=== PATIENT | female | born 1990 | race Caucasian/White ===

== ENCOUNTER 2021-06-05 17:05 | Inpatient (IN) | payer MEDICAID, SELFPAY ==
[2021-06-05] VITALS (8 sets, daily range): BP systolic 93–131; BP diastolic 61–84; PULSE 48–67; RESP 14–18; TEMP 36.3; O2SAT 98–100; BMI 21.6
--- NOTE | 2021-06-05 18:01 | CTR_ITS ---
PROCEDURE INFORMATION: Exam: CT Abdomen And Pelvis Without Contrast Exam date and time: 06/05/2021 6:01 PM Age: 31 years old Clinical indication: Abdominal pain; Prior surgery; Surgery type: Csection; Patient HX: Epigastric pain with n/v. ; Additional info: Epigastric pain, vomiting TECHNIQUE: Imaging protocol: Computed tomography of the abdomen and pelvis without contrast. Radiation optimization: All CT scans at this facility use at least one of these dose optimization techniques: automated exposure control; mA and/or kV adjustment per patient size (includes targeted exams where dose is matched to clinical indication); or iterative reconstruction. COMPARISON: No relevant prior studies available. RADIATION DOSE METRICS: Total DLP (mGy-cm): 682.35 FINDINGS: Liver: Hepatic steatosis. Gallbladder and bile ducts: Normal. No calcified stones. No ductal dilation. Pancreas: Normal. No ductal dilation. Spleen: Normal. No splenomegaly. Adrenal glands: Normal. No mass. Kidneys and ureters: Normal. No hydronephrosis. Stomach and bowel: Unremarkable. No obstruction. No mucosal thickening. Appendix: No evidence of appendicitis. Intraperitoneal space: Small amount nonspecific fluid in the pelvis Vasculature: Unremarkable. No abdominal aortic aneurysm. Lymph nodes: Unremarkable. No enlarged lymph nodes. Urinary bladder: Unremarkable as visualized. Reproductive: IUD in the uterine cavity. Bones/joints: Unremarkable. No acute fracture. Soft tissues: Unremarkable. CT/CT abdomen pelvis con [id number] IMPRESSION: 1. Negative for acute inflammatory process in the abdomen or pelvis. 2. Hepatic steatosis. 3. IUD in the uterine cavity. 4. Small amount nonspecific fluid in the pelvis Radiation Dose CTDIVOL = (mGy): DLP = 682.35 (mGy-cm)
[2021-06-05] MEDS: sodium chloride 0.9% 1,000 ML 999 ML IV (18:09)
[2021-06-05] MEDS: ondansetron 2 mg/ML SDV 2 mL 4 MG IVP (18:10)
[2021-06-05] MEDS: morphine 4 mg/mL SDV 1 mL IVP ×2 (18:10→23:57)
[2021-06-05 18:13] LABS: Basophils # 0.1 10^3/uL (0.0-0.1); Basophils % 0.4 %; Eosinophils % 0.1 %; Hematocrit 43.3 % (37.0-47.0); Hemoglobin 14.8 g/dL (11.5-15.3); Lymphocytes # 1.6 10^3/uL (0.8-4.8); Lymphocytes % 6.5 %; Mean Corpuscular HGB Conc 34.2 g/dL (30.0-36.0); Mean Corpuscular Hemoglobin 30.6 pg (28.0-34.0); Mean Corpuscular Volume 89.6 fl (81-99); Mean Platelet Volume 11.5 fL (7.4-10.4); Monocytes # 1.5 10^3/uL (0.2-0.9); Monocytes % 6.2 %; Neutrophils # 20.73 10^3/uL (1.8-7.7); Neutrophils % 86.2 %; Nucleated Red Blood Cells % 0 %; Platelet Count 287 10^3/cmm (130-400); Red Blood Count 4.83 10^6/uL (4.1-5.3); Red Cell Distribution Width 14.8 % (12.1-15.1); White Blood Count 24.1 10^3/uL (4.0-10.0)
[2021-06-05 18:22] LABS: HCG, Serum Qual Negative (Negative)
[2021-06-05 18:31] LABS: Lactate (Lactic Acid level) 1.7 mmol/L (0.5-2.2)
[2021-06-05 18:32] LABS: Alanine Aminotransferase 405 U/L (0-33); Albumin Level 4.3 g/dL (3.5-5.2); Alkaline Phosphatase 80 IU/L (35-105); Anion Gap 19.1 (5-19); Aspartate Amino Transferase 366 U/L (0-32); Blood Urea Nitrogen 16 mg/dL (6-20); C Reactive Protein 226.1 mg/L (0.0-4.9); Calcium 9.2 mg/dL (8.5-10.5); Carbon Dioxide 25 mmol/L (22-29); Chloride 100 mmol/L (98-107); Creatine Phosphokinase 24 U/L (26-192); Glomerular Filtration Rate 84.8 mL/min (90-130); Glucose 109 mg/dL (65-115); Lipase 9 U/L (13-60); Osmolality Calculated 294 mOsm/kg (285-295); Potassium 3.1 mmol/L (3.5-5.1); Sodium 141 mmol/L (136-145); Total Bilirubin 2.2 mg/dL (0.15-1.2); Total Protein 7.3 g/dL (6.6-8.7)
[2021-06-05 18:39] LABS: Procalcitonin 84.74 ng/mL (0-0.5)
--- NOTE | 2021-06-05 19:01 | USR_ITS ---
PROCEDURE INFORMATION: Exam: US Abdomen, Limited; Right Upper Quadrant Exam date and time: 06/05/2021 7:01 PM Age: 31 years old Clinical indication: Abdominal pain; Acute; Additional info: Ruq pain TECHNIQUE: Imaging protocol: US abdomen. Real time ultrasound with image documentation. Limited exam focused on the right upper quadrant. COMPARISON: CT abdomen pelvis wo con [id number] 06/05/2021 6:31 PM FINDINGS: The pancreas is unremarkable. The liver is homogeneous in echotexture. There is no liver mass. There is no intrahepatic biliary dilatation. There is slight prominence of the portal triads which can be seen with hepatitis. Please correlate with liver function tests. The common bile duct measured between 4 and 5 mm. No gallstones are seen within the gallbladder. There is no thickening of the gallbladder wall. There is no pericholecystic fluid. The patient was not tender over the gallbladder. The right kidney is unremarkable. No free fluid is identified. US/US gall bladder [id number] IMPRESSION: 1. Slight prominence of the portal triads which can be seen with hepatitis. Please correlate with liver function tests. 2. No biliary dilatation.
[2021-06-05 19:52] LABS: Acetaminophen 43.9 ug/mL (10-30)
[2021-06-05 20:05] LABS: Blood Urine 2+ (Negative); Glucose Urine UA Norm (Normal); Ketones Urine 2+ (Negative); Nitrate Urine Positive (Negative); Protein Urine Trace (Negative); Urine Appearance SL Hazy (CLEAR); Urine Color Yellow (Yellow); pH Urine 5 (5-7)
[2021-06-05 20:06] LABS: Add Urine Microscopic? YES; Bilirubin Urine 1+ (Negative); Leukocyte Esterase Urine Negative (Negative); Urobilinogen Urine 4 mg/dL (Negative)
[2021-06-05 20:10] LABS: Add Urine Culture? No; Bacteria Urine 2+ /hpf; Squamous Epithelial Cell Urine 25-40 /hpf (0-5); WBC Urine 15-25 /hpf (0-5)
[2021-06-05 21:06] LABS: Hepatitis A Antibody IgM Non-Reactive (Nonreactive); Hepatitis B Core IgM Non-Reactive (Nonreactive); Hepatitis B Surface Antigen Non-Reactive (Nonreactive); Hepatitis C Virus Antibody Non-Reactive (Nonreactive)
--- NOTE | 2021-06-05 21:57 | MRR_ITS ---
PROCEDURE INFORMATION: Exam: MR Abdomen Without Contrast Exam date and time: 06/05/2021 9:57 PM Age: 31 years old Clinical indication: Nausea and vomiting; Additional info: Hyperbilirubinemia, transaminitis, ruq pain TECHNIQUE: Imaging protocol: MR of the abdomen without contrast. COMPARISON: CT abdomen pelvis con [id number] 06/05/2021 6:31 PM FINDINGS: The study is compared with the recent CT and ultrasound. The liver is homogeneous in signal. There is no liver mass. Is there is no intrahepatic biliary dilatation. The common bile duct measures between 4 and 5 mm. It tapers smoothly. No filling defects are identified. No gallstones are seen within the gallbladder. The pancreas is normal in signal. There is no pancreatic mass. The spleen is unremarkable. There is no adrenal mass. The left kidney appears heterogeneous. There is some stranding of the surrounding fat. Findings could represent pyelonephritis. Please correlate with urinalysis. The right kidney appears normal. The aorta and IVC are normal in caliber. There is no retroperitoneal or mesenteric adenopathy. The stomach and visualized bowel loops are grossly unremarkable. MR/MR MRCP [id number] IMPRESSION: 1. No liver mass. No biliary dilatation. 2. The common bile duct measures between 4 and 5 mm. There are no ductal stones. 3. The left kidney is slightly heterogeneous and there is some perinephric fat stranding. Please correlate clinically for possible pyelonephritis.
--- NOTE | 2021-06-05 23:11 | ED_ITS ---
HPI - Nausea/Vomiting/Diarrhea General: Chief complaint: ER Hold Stated complaint: N/V, ABD PAIN Time Seen by Provider: 06/05/21 17:28 Source: patient, family (significant other), RN notes reviewed and old records reviewed Mode of arrival: ambulatory Limitations: no limitations History of Present Illness: HPI Narrative: This pleasant 31 year female who presents to the ED with complaints of abdominal pain. The pain is located in the epigastric/ RUQ area. Pain started suddenly early this morning and woke her up from sleep. She has been taking a lot of ibuprofen and tylenol for back pain. The back pain is in the left CVA region. She also endorses dysuria and thinks she had a kidney infection for which she has been taking loads of cranberry tablets. She has a history of UTI's in the past. Her pain is severe, and is associated nausea and vomiting. She did not initially want to come to the ED to be evaluated but her significant other insisted that she come in as she is unable to stop vomiting. MD elicited complaint: nausea, vomiting, abdominal pain and flank pain Onset (ago): hour(s) Description of vomiting: food contents Associated nausea: Yes Associated abdominal pain: Yes Location of pain: Epigastric, RUQ and L flank Pain consistency: constant Severity: severe Quality: stabbing Exacerbating factors: none Relieving factors: none Associated symtoms: Reports nausea; Denies altered mental status, anxiety, bloating, change in vision, chest pain, cough, diaphoresis, decreased urine output, dizziness, dysuria, epistaxis, fatigue, fecal incontinence, fevers/chills, headache(s), anorexia, malaise, myalgias, numbness, palpitations, rash, short of breath, syncope, tenesmus, tinnitus or weakness Review of Systems General: Reports: 10 or more systems reviewed and unremarkable except in HPI and below Const: Denies: fatigue, malaise or diaphoresis Eyes: Denies: change in vision ENMT: Denies: tinnitus or epistaxis Card: Denies: chest pain, palpitations or syncope GI: Reports: nausea; Denies: bloating or fecal incontinence : Denies: dysuria Neuro: Denies: headache(s) or dizziness Psych: Denies: anxiety PFSH ED PFSH: Medical History IUD (intrauterine device) in place Physical Exam Const: COMMON NORMALS: average body habitus, patient oriented x3, no limitations, healthy appearing, alert and well nourished EXAM LIMITATIONS: no altered mental status GENERAL APPEARANCE: in distress HENMT: COMMON NORMALS: normocephalic, atraumatic and moist oral mucous membranes HEAD & SCALP: normocephalic and atraumatic Neck/C-Spine: COMMON NORMALS: no meningeal signs and no JVD Resp: COMMON NORMALS: normal respiratory effort, No retractions, No use of accessory muscles, clear to auscultation bilaterally and percussion normal AUSCULTATION: clear to auscultation bilaterally PERCUSSION: percussion normal Cardio: COMMON NORMALS: no JVD, regular rate, regular rhythm, S1 normal heart sound present, S2 normal heart sound present, No gallops present (Cardio), No clicks present (Cardio), No murmurs present (Cardio), No rub (Cardio) and Peripheral pulses 2+ throughout RATE: regular rate RHYTHM: regular rhythm HEART SOUNDS: S1 normal heart sound present and S2 normal heart sound present PERIPHERAL PULSES: Peripheral pulses 2+ throughout GI: COMMON NORMALS: Normal to inspection, nondistended, normoactive bowel sounds present, Soft to palpation, No hepatosplenomegaly present, no masses and no bruits PALPATION: Yes Soft to palpation, Yes Tenderness to palpation present (GI) (epigastric) Details: RUQ, Yes Guarding due to palpation present (GI) and Yes No hepatosplenomegaly present : BLADDER/KIDNEY EXAM: Yes CVA tenderness Back/Pelvis: GENERAL BACK: Yes CVA tenderness CVA tenderness: left Extremity: COMMON NORMALS: normal to inspection, full ROM, capillary refill normal, no calf tenderness and no pedal edema Neuro: COMMON NORMALS: patient oriented x3 SENSORIUM/ORIENTATION: Yes alert MENINGEAL SIGNS: Yes no meningeal signs Skin: COMMON NORMALS: no rashes or lesions noted, no wounds, turgor normal, no jaundice, no petechiae and no mottling GENERAL SKIN EXAM: no rashes or lesions noted and turgor normal Course Consultations: Consultation #1: Discussed the patient with Dr. Loja and she kindly accepted the patient to her service. Time: 22:22 Vital Signs: Vital signs: Vital Signs Temperature 98.3 F 06/09/21 17:20 Pulse Rate 60 06/09/21 17:20 Respiratory Rate 16 06/09/21 17:20 Blood Pressure 120/76 06/09/21 17:20 Pulse Oximetry 95 06/09/21 17:20 MDM - Nausea/Vomiting/Diarrhea MDM Narrative: Medical decision making narrative: This pleasant 31 year old female presents to the ED with complaints of urinary symptoms, flank pain, upper abdominal pain with nausea and vomiting. In the ED she was in obvious distress, and her pain was only controlled with multiple doses of narcotic analgesics. Her UA is suggestive of a UTI, but of most concern, she appears to have hepatitis, with significantly elevated levels of her liver enzymes. US of her GB and CT of her abdomen and pelvis were essentially unremarkable. Acute hepatitis panel was negative. Because i had no explanation for her symptoms, an MRCP was done which was negative for gall bladder disease but showed possible pyelonephritis. After further history taking she admitted to taking significant amounts of tylenol for her flank pain. Tylenol levels were elevated and she is in acetaminophen toxicity. She was started on NAC and admitted for further evaluation and management. Medical Records: Attestation: I reviewed the patient's medical records. Lab Data: Attestation: I reviewed the patient's lab results. Labs: Lab Results 06/05/21 06/05/21 06/05/21 Range/Units 17:47 17:47 17:47 WBC 24.1 H (4.0-10.0) 10^3/ uL RBC 4.83 (4.1-5.3) 10^6/u L Hgb 14.8 (11.5-15.3) g/dL Hct 43.3 (37.0-47.0) % MCV 89.6 (81-99) fl MCH 30.6 (28.0-34.0) pg MCHC 34.2 (30.0-36.0) g/dL RDW 14.8 (12.1-15.1) % Plt Count 287 (130-400) 10^3/c mm MPV 11.5 H (7.4-10.4) fL Neut % (Auto) 86.2 % Lymph % (Auto) 6.5 % [place] % (Auto) 6.2 % Eos % (Auto) 0.1 % Baso % (Auto) 0.4 % Neut # (Auto) 20.73 H (1.8-7.7) 10^3/u L Lymph # (Auto) 1.6 (0.8-4.8) 10^3/u L [place] # (Auto) 1.5 H (0.2-0.9) 10^3/u L Eos # (Auto) 0.0 (0.0-0.8) 10^3/u L Baso # (Auto) 0.1 (0.0-0.1) 10^3/u L Nucleated RBC % (a uto) 0 % Nucleated RBCs # 0.0 /100WBC Sodium 141 (136-145) mmol/L Potassium 3.1 L (3.5-5.1) mmol/L Chloride 100 (98-107) mmol/L Carbon Dioxide 25 (22-29) mmol/L Anion Gap 19.1 H (5-19) BUN 16 (6-20) mg/dL Creatinine 0.8 (0.5-0.9) mg/dL GFR Calculation 84.8 L (90-130) mL/min Glucose 109 (65-115) mg/dL Calculated Osmolal ity 294 (285-295) mOsm/k g Lactate 1.7 (0.5-2.2) mmol/L Calcium 9.2 (8.5-10.5) mg/dL Total Bilirubin 2.2 H (0.15-1.2) mg/dL AST 366 H (0-32) U/L ALT 405 H (0-33) U/L Alkaline Phosphata se 80 (35-105) IU/L Creatine Kinase 24 L (26-192) U/L C-Reactive Protein 226.1 H (0.0-4.9) mg/L Total Protein 7.3 (6.6-8.7) g/dL Albumin 4.3 (3.5-5.2) g/dL Globulin 3.0 (1.3-4.6) g/dL Lipase 9 L (13-60) U/L Procalcitonin 84.74 H (0-0.5) ng/mL HCG, Qual (Negative) Urine Color (Yellow) Urine Appearance (CLEAR) Urine pH (5-7) Ur Specific Gravit y (1.005-1.030) Urine Protein (Negative) Urine Glucose (UA) (Normal) Urine Ketones (Negative) Urine Blood (Negative) Urine Nitrate (Negative) Urine Bilirubin (Negative) Urine Urobilinogen (Negative) mg/dL Ur Leukocyte Ameena ase (Negative) Urine RBC (0-2) /hpf Urine WBC (0-5) /hpf Ur Squamous Epith Cells (0-5) /hpf Amorphous Sediment Urine Bacteria (NONE) /hpf Salicylates (3-10) mg/dL Urine Opiates Scre en (Negative) ng/mL Acetaminophen (10-30) ug/mL Ur Barbiturates Sc reen (Negative) ng/mL Ur Phencyclidine S crn (Negative) ng/mL Ur Amphetamines Sc reen (Negative) ng/mL U Benzodiazepines Scrn (Negative) ng/mL Urine Cocaine Scre en (Negative) ng/mL U Marijuana (THC) Screen (Negative) ng/mL Nasal/Oral COVID-1 9 PCR Hepatitis A IgM Ab (Nonreactive) Hep Bs Antigen (Nonreactive) Hep B Core IgM Ab (Nonreactive) Hepatitis C Antibo dy (Nonreactive) 06/05/21 06/05/21 06/05/21 Range/Units 17:47 17:47 17:47 WBC (4.0-10.0) 10^3/ uL RBC (4.1-5.3) 10^6/u L Hgb (11.5-15.3) g/dL Hct (37.0-47.0) % MCV (81-99) fl MCH (28.0-34.0) pg MCHC (30.0-36.0) g/dL RDW (12.1-15.1) % Plt Count (130-400) 10^3/c mm MPV (7.4-10.4) fL Neut % (Auto) % Lymph % (Auto) % [place] % (Auto) % Eos % (Auto) % Baso % (Auto) % Neut # (Auto) (1.8-7.7) 10^3/u L Lymph # (Auto) (0.8-4.8) 10^3/u L [place] # (Auto) (0.2-0.9) 10^3/u L Eos # (Auto) (0.0-0.8) 10^3/u L Baso # (Auto) (0.0-0.1) 10^3/u L Nucleated RBC % (a uto) % Nucleated RBCs # /100WBC Sodium (136-145) mmol/L Potassium (3.5-5.1) mmol/L Chloride (98-107) mmol/L Carbon Dioxide (22-29) mmol/L Anion Gap (5-19) BUN (6-20) mg/dL Creatinine (0.5-0.9) mg/dL GFR Calculation (90-130) mL/min Glucose (65-115) mg/dL Calculated Osmolal ity (285-295) mOsm/k g Lactate (0.5-2.2) mmol/L Calcium (8.5-10.5) mg/dL Total Bilirubin (0.15-1.2) mg/dL AST (0-32) U/L ALT (0-33) U/L Alkaline Phosphata se (35-105) IU/L Creatine Kinase (26-192) U/L C-Reactive Protein (0.0-4.9) mg/L Total Protein (6.6-8.7) g/dL Albumin (3.5-5.2) g/dL Globulin (1.3-4.6) g/dL Lipase (13-60) U/L Procalcitonin (0-0.5) ng/mL HCG, Qual Negative (Negative) Urine Color (Yellow) Urine Appearance (CLEAR) Urine pH (5-7) Ur Specific Gravit y (1.005-1.030) Urine Protein (Negative) Urine Glucose (UA) (Normal) Urine Ketones (Negative) Urine Blood (Negative) Urine Nitrate (Negative) Urine Bilirubin (Negative) Urine Urobilinogen (Negative) mg/dL Ur Leukocyte Ameena ase (Negative) Urine RBC (0-2) /hpf Urine WBC (0-5) /hpf Ur Squamous Epith Cells (0-5) /hpf Amorphous Sediment Urine Bacteria (NONE) /hpf Salicylates (3-10) mg/dL Urine Opiates Scre en (Negative) ng/mL Acetaminophen 43.9 H (10-30) ug/mL Ur Barbiturates Sc reen (Negative) ng/mL Ur Phencyclidine S crn (Negative) ng/mL Ur Amphetamines Sc reen (Negative) ng/mL U Benzodiazepines Scrn (Negative) ng/mL Urine Cocaine Scre en (Negative) ng/mL U Marijuana (THC) Screen (Negative) ng/mL Nasal/Oral COVID-1 9 PCR Hepatitis A IgM Ab Non-reactive (Nonreactive) Hep Bs Antigen Non-reactive (Nonreactive) Hep B Core IgM Ab Non-reactive (Nonreactive) Hepatitis C Antibo dy Non-reactive (Nonreactive) 06/05/21 06/05/21 06/05/21 Range/Units 17:47 19:37 19:37 WBC (4.0-10.0) 10^3/ uL RBC (4.1-5.3) 10^6/u L Hgb (11.5-15.3) g/dL Hct (37.0-47.0) % MCV (81-99) fl MCH (28.0-34.0) pg MCHC (30.0-36.0) g/dL RDW (12.1-15.1) % Plt Count (130-400) 10^3/c mm MPV (7.4-10.4) fL Neut % (Auto) % Lymph % (Auto) % [place] % (Auto) % Eos % (Auto) % Baso % (Auto) % Neut # (Auto) (1.8-7.7) 10^3/u L Lymph # (Auto) (0.8-4.8) 10^3/u L [place] # (Auto) (0.2-0.9) 10^3/u L Eos # (Auto) (0.0-0.8) 10^3/u L Baso # (Auto) (0.0-0.1) 10^3/u L Nucleated RBC % (a uto) % Nucleated RBCs # /100WBC Sodium (136-145) mmol/L Potassium (3.5-5.1) mmol/L Chloride (98-107) mmol/L Carbon Dioxide (22-29) mmol/L Anion Gap (5-19) BUN (6-20) mg/dL Creatinine (0.5-0.9) mg/dL GFR Calculation (90-130) mL/min Glucose (65-115) mg/dL Calculated Osmolal ity (285-295) mOsm/k g Lactate (0.5-2.2) mmol/L Calcium (8.5-10.5) mg/dL Total Bilirubin (0.15-1.2) mg/dL AST (0-32) U/L ALT (0-33) U/L Alkaline Phosphata se (35-105) IU/L Creatine Kinase (26-192) U/L C-Reactive Protein (0.0-4.9) mg/L Total Protein (6.6-8.7) g/dL Albumin (3.5-5.2) g/dL Globulin (1.3-4.6) g/dL Lipase (13-60) U/L Procalcitonin (0-0.5) ng/mL HCG, Qual (Negative) Urine Color Yellow (Yellow) Urine Appearance Sl hazy (CLEAR) Urine pH 5 (5-7) Ur Specific Gravit y 1.020 (1.005-1.030) Urine Protein Trace (Negative) Urine Glucose (UA) Norm (Normal) Urine Ketones 2+ H (Negative) Urine Blood 2+ H (Negative) Urine Nitrate Positive H (Negative) Urine Bilirubin 1+ H (Negative) Urine Urobilinogen 4 H (Negative) mg/dL Ur Leukocyte Ameena ase Negative (Negative) Urine RBC 5-10 H (0-2) /hpf Urine WBC 15-25 H (0-5) /hpf Ur Squamous Epith Cells 25-40 H (0-5) /hpf Amorphous Sediment Not Reportable Urine Bacteria 2+ H (NONE) /hpf Salicylates < 0.3 L (3-10) mg/dL Urine Opiates Scre en Positive H (Negative) ng/mL Acetaminophen (10-30) ug/mL Ur Barbiturates Sc reen Negative (Negative) ng/mL Ur Phencyclidine S crn Negative (Negative) ng/mL Ur Amphetamines Sc reen Positive H (Negative) ng/mL U Benzodiazepines Scrn Negative (Negative) ng/mL Urine Cocaine Scre en Negative (Negative) ng/mL U Marijuana (THC) Screen Positive H (Negative) ng/mL Nasal/Oral COVID-1 9 PCR Hepatitis A IgM Ab (Nonreactive) Hep Bs Antigen (Nonreactive) Hep B Core IgM Ab (Nonreactive) Hepatitis C Antibo dy (Nonreactive) 06/06/ Range/Units 01:30 WBC (4.0-10.0) 10^3/ uL RBC (4.1-5.3) 10^6/u L Hgb (11.5-15.3) g/dL Hct (37.0-47.0) % MCV (81-99) fl MCH (28.0-34.0) pg MCHC (30.0-36.0) g/dL RDW (12.1-15.1) % Plt Count (130-400) 10^3/c mm MPV (7.4-10.4) fL Neut % (Auto) % Lymph % (Auto) % [place] % (Auto) % Eos % (Auto) % Baso % (Auto) % Neut # (Auto) (1.8-7.7) 10^3/u L Lymph # (Auto) (0.8-4.8) 10^3/u L [place] # (Auto) (0.2-0.9) 10^3/u L Eos # (Auto) (0.0-0.8) 10^3/u L Baso # (Auto) (0.0-0.1) 10^3/u L Nucleated RBC % (a uto) % Nucleated RBCs # /100WBC Sodium (136-145) mmol/L Potassium (3.5-5.1) mmol/L Chloride (98-107) mmol/L Carbon Dioxide (22-29) mmol/L Anion Gap (5-19) BUN (6-20) mg/dL Creatinine (0.5-0.9) mg/dL GFR Calculation (90-130) mL/min Glucose (65-115) mg/dL Calculated Osmolal ity (285-295) mOsm/k g Lactate (0.5-2.2) mmol/L Calcium (8.5-10.5) mg/dL Total Bilirubin (0.15-1.2) mg/dL AST (0-32) U/L ALT (0-33) U/L Alkaline Phosphata se (35-105) IU/L Creatine Kinase (26-192) U/L C-Reactive Protein (0.0-4.9) mg/L Total Protein (6.6-8.7) g/dL Albumin (3.5-5.2) g/dL Globulin (1.3-4.6) g/dL Lipase (13-60) U/L Procalcitonin (0-0.5) ng/mL HCG, Qual (Negative) Urine Color (Yellow) Urine Appearance (CLEAR) Urine pH (5-7) Ur Specific Gravit y (1.005-1.030) Urine Protein (Negative) Urine Glucose (UA) (Normal) Urine Ketones (Negative) Urine Blood (Negative) Urine Nitrate (Negative) Urine Bilirubin (Negative) Urine Urobilinogen (Negative) mg/dL Ur Leukocyte Ameena ase (Negative) Urine RBC (0-2) /hpf Urine WBC (0-5) /hpf Ur Squamous Epith Cells (0-5) /hpf Amorphous Sediment Urine Bacteria (NONE) /hpf Salicylates (3-10) mg/dL Urine Opiates Scre en (Negative) ng/mL Acetaminophen (10-30) ug/mL Ur Barbiturates Sc reen (Negative) ng/mL Ur Phencyclidine S crn (Negative) ng/mL Ur Amphetamines Sc reen (Negative) ng/mL U Benzodiazepines Scrn (Negative) ng/mL Urine Cocaine Scre en (Negative) ng/mL U Marijuana (THC) Screen (Negative) ng/mL Nasal/Oral COVID-1 9 PCR Not detected Hepatitis A IgM Ab (Nonreactive) Hep Bs Antigen (Nonreactive) Hep B Core IgM Ab (Nonreactive) Hepatitis C Antibo dy (Nonreactive) Imaging Data^: MRI: Attestation: I personally reviewed and interpreted this imaging study as follows: Radiologist's impression: [address] [id number] Resonance ReportSigned Patient: Jessica Johnson #: [id number]: 1990Acct#:[id number]/Sex: M Date: 06/05/21Loc: ERRoom/Bed:Attending Dr: Ordering Provider/Ordering MD: Judy Fay MD, [facility] [place] Date of Service: 06/05/21 Procedure(s): MR MRCP 22635 Accession Number(s): [id number] Report Number: [id number] PROCEDURE INFORMATION: Exam: MR Abdomen Without Contrast Exam date and time: 06/05/2021 9:57 PM Age: 31 years old Clinical indication: Nausea and vomiting; Additional info: Hyperbilirubinemia, transaminitis, ruq pain TECHNIQUE: Imaging protocol: MR of the abdomen without contrast. COMPARISON: CT abdomen pelvis wo con [id number] 06/05/2021 6:31 PM FINDINGS: The study is compared with the recent CT and ultrasound. The liver is homogeneous in signal. There is no liver mass. Is there is no intrahepatic biliary dilatation. The common bile duct measures between 4 and 5 mm. It tapers smoothly. No filling defects are identified. No gallstones are seen within the gallbladder. The pancreas is normal in signal. There is no pancreatic mass. The spleen is unremarkable. There is no adrenal mass. The left kidney appears heterogeneous. There is some stranding of the surrounding fat. Findings could represent pyelonephritis. Please correlate with urinalysis. The right kidney appears normal. The aorta and IVC are normal in caliber. There is no retroperitoneal or mesenteric adenopathy. The stomach and visualized bowel loops are grossly unremarkable. MR/MR MRCP [id number] IMPRESSION: 1. No liver mass. No biliary dilatation. 2. The common bile duct measures between 4 and 5 mm. There are no ductal stones. 3. The left kidney is slightly heterogeneous and there is some perinephric fat stranding. Please correlate clinically for possible pyelonephritis. Dictated By:Ming Wolff MDSigned By:Ming Wolff MDSigned Date/Time:06/05/212317DD/ 16 US: Attestation: I personally reviewed and interpreted this imaging study as follows: Radiologist's impression: [address] [id number] ReportSigned Patient: Jessica Johsnon #: [id number]: 1990Acct#:[id number]/Sex: 31 / FADM Date: 06/05/21Loc: ERRoom/Bed:Attending Dr: Ordering Provider/Ordering MD: Judy Fay MD, [facility] [place] Date of Service: 06/05/21 Procedure(s): US gall bladder [id number] Accession Number(s): [id number] Report Number: [id number] PROCEDURE INFORMATION: Exam: US Abdomen, Limited; Right Upper Quadrant Exam date and time: 06/05/2021 7:01 PM Age: 31 years old Clinical indication: Abdominal pain; Acute; Additional info: Ruq pain TECHNIQUE: Imaging protocol: US abdomen. Real time ultrasound with image documentation. Limited exam focused on the right upper quadrant. COMPARISON: CT abdomen pelvis wo con [id number] 06/05/2021 6:31 PM FINDINGS: The pancreas is unremarkable. The liver is homogeneous in echotexture. There is no liver mass. There is no intrahepatic biliary dilatation. There is slight prominence of the portal triads which can be seen with hepatitis. Please correlate with liver function tests. The common bile duct measured between 4 and 5 mm. No gallstones are seen within the gallbladder. There is no thickening of the gallbladder wall. There is no pericholecystic fluid. The patient was not tender over the gallbladder. The right kidney is unremarkable. No free fluid is identified. US/US gall bladder [id number] IMPRESSION: 1. Slight prominence of the portal triads which can be seen with hepatitis. Please correlate with liver function tests. 2. No biliary dilatation. Dictated By:Ming Wolff MDSigned By:Ming Wolff MDSigned Date/Time:06/05/21D/ 52 CT Abd/Pel: Attestation: I personally reviewed and interpreted this imaging study as follows: Radiologist's impression: Justin [address] [id number] Scan ReportSigned Patient: Jessica Johnson #: [id number]: 1990Acct#:[id number]/Sex: 31 / FADM Date: 06/05/21Loc: ERRoom/Bed:Attending Dr: Ordering Provider/Ordering MD: Judy Fay MD, [facility] [place] Date of Service: 06/05/21 Procedure(s): CT abdomen pelvis wo con [id number] Accession Number(s): [id number] Report Number: [id number] PROCEDURE INFORMATION: Exam: CT Abdomen And Pelvis Without Contrast Exam date and time: 06/05/2021 6:01 PM Age: 31 years old Clinical indication: Abdominal pain; Prior surgery; Surgery type: Csection; Patient HX: Epigastric pain with n/v. ; Additional info: Epigastric pain, vomiting TECHNIQUE: Imaging protocol: Computed tomography of the abdomen and pelvis without contrast. Radiation optimization: All CT scans at this facility use at least one of these dose optimization techniques: automated exposure control; mA and/or kV adjustment per patient size (includes targeted exams where dose is matched to clinical indication); or iterative reconstruction. COMPARISON: No relevant prior studies available. RADIATION DOSE METRICS: Total DLP (mGy-cm): 682.35 FINDINGS: Liver: Hepatic steatosis. Gallbladder and bile ducts: Normal. No calcified stones. No ductal dilation. Pancreas: Normal. No ductal dilation. Spleen: Normal. No splenomegaly. Adrenal glands: Normal. No mass. Kidneys and ureters: Normal. No hydronephrosis. Stomach and bowel: Unremarkable. No obstruction. No mucosal thickening. Appendix: No evidence of appendicitis. Intraperitoneal space: Small amount nonspecific fluid in the pelvis Vasculature: Unremarkable. No abdominal aortic aneurysm. Lymph nodes: Unremarkable. No enlarged lymph nodes. Urinary bladder: Unremarkable as visualized. Reproductive: IUD in the uterine cavity. Bones/joints: Unremarkable. No acute fracture. Soft tissues: Unremarkable. CT/CT abdomen pelvis wo con [id number] IMPRESSION: 1. Negative for acute inflammatory process in the abdomen or pelvis. 2. Hepatic steatosis. 3. IUD in the uterine cavity. 4. Small amount nonspecific fluid in the pelvis Radiation Dose CTDIVOL = (mGy): DLP = 682.35 (mGy-cm) Dictated By:Joel Mae MDSigned By:Joel Mae MDSigned Date/Time:06/05/21 1843DD/ 41 Critical Care Time Critical Care Time: Critical Care Time: Yes Total Critical Care Time: 60 Attestation: This case had a high probability of a clinically significant, sudden, or life threatening deterioration of this patient's condition which required my full and direct attention, intervention and personal management. Discharge Plan Discharge Patient Disposition: Admitted As Inpatient Admit Provider: Jess Loja Clinical Impression: Acetaminophen toxicity, Pyelonephritis, Hypokalemia, Acute hepatitis Condition: Stable Discharge Diet: Advance as tolerated Discharge Activity: Resume usual activity Coding Level of Care Code ED Health Information Director for g Fwd
[2021-06-05] MEDS: cefTRIAXone 1,000 MG in sodium chloride 0.9% (plus) 50 ML 100 MG IV (23:58)
[2021-06-06] VITALS (11 sets, daily range): BP systolic 95–126; BP diastolic 51–76; PULSE 77–98; RESP 16–18; TEMP 36.8; O2SAT 95–100
--- NOTE | 2021-06-06 00:19 | XRR_ITS ---
PROCEDURE INFORMATION: Exam: XR Chest Exam date and time: 06/06/2021 12:19 AM Age: 31 years old Clinical indication: Other: Sepsis TECHNIQUE: Imaging protocol: XR of the chest. Views: 1 view. COMPARISON: MR MRCP [id number] 06/05/2021 10:36 PM FINDINGS: Lungs: Unremarkable. No consolidation. Pleural spaces: Unremarkable. No pleural effusion. No pneumothorax. Heart/Mediastinum: Unremarkable. No cardiomegaly. Bones/joints: Unremarkable. XR/XR chest 1V portable [id number] IMPRESSION: No acute disease.
--- NOTE | 2021-06-06 00:29 | P.HP_ITS ---
Providers/Chief Complaint Admitting Physician: Jess Loja MD Chief Complaint: N/V, ABD PAIN History of Present Illness Jessica Johnson is a 31 year old female without known significant past medical history who is presenting to the hospital today with chief complaints of pain in the epigastric and right upper quadrant area that started suddenly this morning. Patient states she woke up with pain and had multiple episodes of vomiting wh ich is what prompted her ER visit. Over the past week she has had symptoms of dysuria left-sided CVA tenderness, she presumed she had kidney infection and was taking cranberry tablets at home for cure. She does have a history of recurrent UTIs which have been treated with antibiotics in the past, however she has not used any antibiotics currently. She denies having had any fevers at home however endorses chills and diaphoresis. She has been taking Tylenol and Motrin consistently over the past week. States she takes Tylenol up to 1.5 g 5- 6 times a day to control her abdominal and back pain. In the ER today she is noted to have transaminitis and a Tylenol level greater than 40 consistent with acetaminophen toxicity. Other labs notable for positive UA. Urine drug screen is positive for amphetamines and marijuana. She underwent an MRCP earlier today which ruled out any issues with the gallbladder or portal system, however made incidental note of left-sided perinephric stranding. Dedicated CT of the abdomen was negative for any hydronephrosis or obstructing lesions. Review of Systems General: Reports: 10 or more systems reviewed and unremarkable except in HPI and below Const: Denies: fever(s), chills or body aches Eyes: Denies: change in vision, blurry vision or photophobia ENMT: Reports: hoarseness; Denies: throat pain, enlarged tonsils, odynophagia or nasal congestion Card: Denies: chest pain, palpitations, irregular heart rhythm, edema, swelling of feet/ankles, lightheadedness, pre-syncope, dyspnea on exertion or or thopnea Resp: Denies: dyspnea, productive cough, non-productive cough, wheezing, stridor, pain on inspiration, change in phlegm color, hemoptysis or chest congestion GI: Denies: abdominal pain, nausea, vomiting, hematemesis, coffee ground emesis, dysphagia, heartburn, diarrhea, constipation, GI cramping, change in stool character, hematochezia or melena : Denies: flank pain, difficulty voiding, dysuria, urinary frequency, urinary urgency, urinary hesitancy or hematuria Musc: Denies: neck pain, back pain, extremity pain, joint swelling, joint warmth or deformity Neuro: Denies: headache(s), numbness in extremities, weakness in extremities, sensory changes, difficulty walking, frequent falls, dizziness, vertigo, beha vioral changes, Slurred speech present or seizure-like activity Psych: Denies: anxiety, depression, suicidal ideation or homicidal ideation Endo: Denies: polyuria, polydipsia, tired all the time, cold intolerance or hot flashes Moises/Lymph: Denies: easy bruising or easy bleeding Medications/Allergies Home Medications Medication Instructions Recorded Confirmed Last Taken Type No Known Home Medications 06/05/21 06/05/21 Unknown History Allergies Allergy/AdvReac Type Severity Reaction Status Date / Time No Known Allergies Allergy Unverified 06/05/21 18:38 Vitals/I&O/Wt Last Vital Signs Temp 97.4 F L 06/05/21 17:26 Pulse 64 06/05/21 23:37 Resp 14 06/05/21 23:57 BP 96/69 06/05/21 23:37 Pulse Ox 100 06/05/21 23:37 06/05/21 06/05/21 06/06/21 14:59 22:59 06:59 Intake Total 1000 / 1000 50 / 1050 Balance 1000 / 1000 50 / 1050 Weight last 48 hrs Weight 58.967 kg Physical Exam Narrative: EXAM NARRATIVE: General: No acute distress, AO x3 HEENT: PERRLA, pupils bilaterally equal and reactive, pallors not present Chest: Normal vesicular breath sounds, no added sounds, equal good air entry bilaterally CVS: S1-S2 regular, no murmurs, no tachycardia, no gallops, no rubs Abdomen: Soft, nontender, no organomegaly, bowel sounds present Neuro: No focal deficits, no facial deformity, AO x3, power 5/5 in all limbs Extremities: Left-sided CVA tenderness positive Data : 06/05/21 17:47 06/05/21 17:47 A&P Assessment and plan (1) Pyelonephritis: Uncomplicated pyelonephritis with symptoms ongoing for about a week. Start ceftriaxone 1 g IV every [address] of the abdomen without any hydronephrosis or obstructing lesions. Urine culture pending. Status: Acute (2) Acetaminophen toxicity: Patient taking doses in excess of 7.5 to 8 g of acetaminophen a day for pain relief. Evidence of transaminitis additionally noted. Acetaminophen level greater than 40 Start N-acetylcysteine infusion per protocol and closely monitor LFTs and serial acetaminophen levels. Status: Acute Qualifiers: Encounter type: initial encounter Injury intent: accidental or unintentional Qualified Code(s): T39.1X1A - Poisoning by 4-Aminophenol abhay ivatives, accidental (unintentional), initial encounter (3) Transaminitis: Likely as a result of liver injury from acetaminophen overdose Urine tox screen also positive for amphetamines which may be contributing. Acute hepatitis serology is negative. Check Covid PCR and HIV screen Status: Acute Additional A&P Information DVT prophylaxis Lovenox Full code Attestations Medical Necessity Statement*: Greater than 2 midnight admission is anticipated for above defined care. 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
[2021-06-06 00:46] LABS: Amphetamines Screen Urine Positive (Negative); Barbiturates Screen Urine Negative (Negative); Benzodiazepines Screen Urine Negative (Negative); Cocaine Screen Urine Negative (Negative); Opiate Screen Urine Positive (Negative); PCP Screen Urine Negative (Negative); THC Screen Urine Positive (Negative)
[2021-06-06 00:52] LABS: Salicylate < 0.3 mg/dL (3-10)
[2021-06-06] MEDS: lactated ringers 1,000 ML 75 ML IV ×2 (01:58→20:47)
[2021-06-06] MEDS: morphine 4 mg/mL SDV 1 mL 2 MG IVP ×5 (01:58→20:58)
[2021-06-06] MEDS: ondansetron 2 mg/ML SDV 2 mL 4 MG IVP (04:55)
[2021-06-06 05:17] LABS: Ammonia 40 umol/L (11-51)
[2021-06-06 05:22] LABS: Acetaminophen 8.2 ug/mL (10-30); Alanine Aminotransferase 613 U/L (0-33); Albumin Level 3.1 g/dL (3.5-5.2); Alkaline Phosphatase 63 IU/L (35-105); Anion Gap 13.4 (5-19); Aspartate Amino Transferase 425 U/L (0-32); Blood Urea Nitrogen 10 mg/dL (6-20); Calcium 7.7 mg/dL (8.5-10.5); Carbon Dioxide 24 mmol/L (22-29); Chloride 100 mmol/L (98-107); Globulin 2.7 g/dL (1.3-4.6); Glomerular Filtration Rate 188.7 mL/min (90-130); Glucose 141 mg/dL (65-115); Osmolality Calculated 281 mOsm/kg (285-295); Sodium 135 mmol/L (136-145); Total Bilirubin 1.3 mg/dL (0.15-1.2); Total Protein 5.8 g/dL (6.6-8.7)
[2021-06-06 05:59] LABS: HIV 1 & 2 Antibody Non-Reactive (Non-Reactiv); HIV 1 & 2 Antigen Non-Reactive (Non-Reactiv)
[2021-06-06 06:00] LABS: INR 1.67 (0.8-1.2)
[2021-06-06 06:06] LABS: Potassium 2.4 mmol/L (3.5-5.1)
[2021-06-06] MEDS: lidocaine 1% 5 ML in potassium chloride premix 100 ML 25 ML IV (08:26)
[2021-06-06] MEDS: potassium chloride ER 20 mEq Tablet 40 MEQ PO (08:26)
[2021-06-06] MEDS: pantoprazole DR 40 mg Tablet PO (08:26)
[2021-06-06 10:09] LABS: Magnesium 1.5 mg/dL (1.7-2.3)
--- NOTE | 2021-06-06 13:34 | P.PN_ITS ---
Subjective Subjective: Interval history: 31-year-old female she had reported that she took up to 1-1/2 g 5-6 times a day of Tylenol. Elevated Tylenol level as well as transaminitis. Admitted this morning with complaints of epigastric and right upper quadrant pain. Started on NAC. Tylenol levels have improved although her liver enzymes continue to be elevated. Her nausea vomiting is slightly better. Reports appetite is poor. Other labs notable for positive UA. Urine drug screen is positive for amphetamines and marijuana. She underwent an MRCP earlier today which ruled out any issues with the gallbladder or portal system, however made incidental note of left-sided perinephric stranding. Dedicated CT of the abdomen was negative for any hydronephrosis or obstructing lesions. Medications: Reviewed: Yes Vitals/I&O/Wt Last Vital Signs Temp 97.4 F L 06/05/21 17:26 Pulse 97 06/06/21 08:36 Resp 18 06/06/21 09:34 BP 119/76 06/06/21 08:36 Pulse Ox 98 06/06/21 09:34 06/05/21 06/06/21 06/06/21 22:59 06:59 14:59 Intake Total 1000 / 1000 858.5 / 1858.5 Balance 1000 / 1000 858.5 / 1858.5 Weight last 48 hrs Weight 130 lb Physical Exam Const: COMMON NORMALS: patient oriented x3 GENERAL APPEARANCE: cooperative and lethargic ORIENTATION/CONSCIOUSNESS: Yes lethargic Resp: COMMON NORMALS: normal respiratory effort and No retractions Cardio: COMMON NORMALS: regular rate and regular rhythm RATE: regular rate RHYTHM: regular rhythm GI: COMMON NORMALS: Soft to palpation and non-tender PALPATION: Yes Soft to palpation Neuro: COMMON NORMALS: patient oriented x3 SENSORIUM/ORIENTATION: Yes lethargic Psych: COMMON NORMALS: mental status grossly normal Skin: COMMON NORMALS: no rashes or lesions noted GENERAL SKIN EXAM: no rashes or lesions noted Data : 06/05/21 17:47 06/06/21 04:34 Micro: Microbiology 06/06/21 04:30 Blood Culture - Preliminary Blood SPECIMEN COLLECTED 06/06/21 04:34 Blood Culture - Preliminary Blood SPECIMEN COLLECTED A&P Assessment and plan (1) Pyelonephritis: ceftriaxone 1 g IV every [address] of the abdomen without any hydronephrosis or obstructing lesions. Urine culture pending. Status: Acute (2) Acetaminophen toxicity: patient taking doses in excess of 7.5 to 8 g of acetaminophen a day for pain relief. Evidence of transaminitis additionally noted. Acetaminophen level greater than 40 continue N-acetylcysteine infusion per protocol and closely monitor LFTs and serial acetaminophen level Status: Acute Qualifiers: Encounter type: initial encounter Injury intent: accidental or unintentional Qualified Code(s): T39.1X1A - Poisoning by 4-Aminophenol derivatives, accidental (unintentional), initial encounter (3) Transaminitis: Status: Acute (4) Hypokalemia: replace and recheck Status: Acute (5) Hypomagnesemia: replace and recheck Status: Acute Additional A&P Information DVT: Danny Randle Medical Necessity Statement*: Jessica Johnson's hospital stay will require greater than 2 midnights for transaminitis Coding Level of Care Code Acute 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
[2021-06-06 14:58] LABS: Coronavirus Test Green County Not Detected
[2021-06-06 19:22] LABS: Anion Gap 11.9 (5-19); Blood Urea Nitrogen 6 mg/dL (6-20); Calcium 7.7 mg/dL (8.5-10.5); Carbon Dioxide 26 mmol/L (22-29); Chloride 100 mmol/L (98-107); Glomerular Filtration Rate 188.7 mL/min (90-130); Glucose 109 mg/dL (65-115); Magnesium 1.5 mg/dL (1.7-2.3); Osmolality Calculated 278 mOsm/kg (285-295); Sodium 135 mmol/L (136-145)
[2021-06-06 19:29] LABS: Potassium 2.9 mmol/L (3.5-5.1)
[2021-06-06 20:38] LABS: INR 1.77 (0.8-1.2)
[2021-06-06] MEDS: magnesium sulfate premix 2 GM/50 ML PIGGYBACK IV (20:47)
[2021-06-06 20:48] LABS: Alkaline Phosphatase 65 IU/L (35-105); Aspartate Amino Transferase 478 U/L (0-32); Globulin 2.5 g/dL (1.3-4.6); Phosphorus 1.3 mg/dL (2.5-4.5); Total Bilirubin 1.2 mg/dL (0.15-1.2); Total Protein 5.5 g/dL (6.6-8.7)
[2021-06-06 21:00] LABS: Alanine Aminotransferase 862 U/L (0-33)
[2021-06-07] VITALS (9 sets, daily range): BP systolic 98–121; BP diastolic 62–81; PULSE 75–89; RESP 14–18; TEMP 36.8–36.9; O2SAT 96–99
[2021-06-07] MEDS: cefTRIAXone 1,000 MG in sodium chloride 0.9% (plus) 50 ML 100 MG IV ×2 (01:09→23:35)
[2021-06-07] MEDS: morphine 4 mg/mL SDV 1 mL 2 MG IVP ×3 (04:07→19:55)
[2021-06-07] MEDS: ondansetron 2 mg/ML SDV 2 mL 4 MG IVP (04:07)
[2021-06-07 04:31] LABS: Basophils # 0.1 10^3/uL (0.0-0.1); Basophils % 0.3 %; Eosinophils # 0.2 10^3/uL (0.0-0.8); Eosinophils % 1.4 %; Hematocrit 31.9 % (37.0-47.0); Lymphocytes # 2.2 10^3/uL (0.8-4.8); Lymphocytes % 14.8 %; Mean Corpuscular HGB Conc 34.5 g/dL (30.0-36.0); Mean Corpuscular Hemoglobin 31.2 pg (28.0-34.0); Mean Corpuscular Volume 90.4 fl (81-99); Mean Platelet Volume 12.5 fL (7.4-10.4); Monocytes # 1.3 10^3/uL (0.2-0.9); Monocytes % 8.4 %; Neutrophils # 11.14 10^3/uL (1.8-7.7); Neutrophils % 74.5 %; Nucleated Red Blood Cells % 0 %; Platelet Count 180 10^3/cmm (130-400); Red Blood Count 3.53 10^6/uL (4.1-5.3); Red Cell Distribution Width 14.8 % (12.1-15.1)
[2021-06-07 04:40] LABS: Ammonia 93 umol/L (11-51)
[2021-06-07 04:41] LABS: Albumin Level 2.7 g/dL (3.5-5.2); Alkaline Phosphatase 64 IU/L (35-105); Anion Gap 13.3 (5-19); Aspartate Amino Transferase 547 U/L (0-32); Blood Urea Nitrogen 3 mg/dL (6-20); Calcium 7.8 mg/dL (8.5-10.5); Carbon Dioxide 25 mmol/L (22-29); Chloride 102 mmol/L (98-107); Globulin 2.7 g/dL (1.3-4.6); Glomerular Filtration Rate 188.7 mL/min (90-130); Glucose 86 mg/dL (65-115); Magnesium 1.9 mg/dL (1.7-2.3); Osmolality Calculated 280 mOsm/kg (285-295); Phosphorus 2.8 mg/dL (2.5-4.5); Potassium 3.3 mmol/L (3.5-5.1); Sodium 137 mmol/L (136-145); Total Bilirubin 1.1 mg/dL (0.15-1.2); Total Protein 5.4 g/dL (6.6-8.7)
[2021-06-07 04:46] LABS: Procalcitonin 60.39 ng/mL (0-0.5)
[2021-06-07 04:47] LABS: Acetaminophen < 5.0 ug/mL (10-30)
[2021-06-07 04:54] LABS: Alanine Aminotransferase 1061 U/L (0-33)
[2021-06-07] MEDS: lactulose oral liq 20 gm/30 mL UDC PO ×2 (08:00→17:09)
[2021-06-07] MEDS: pantoprazole DR 40 mg Tablet PO (08:03)
[2021-06-07] MEDS: phosphorus 250 mg Tablet PO ×2 (08:03→17:09)
[2021-06-07] MEDS: magnesium oxide 400 mg tablet PO ×2 (08:30→17:09)
--- NOTE | 2021-06-07 14:48 | P.PN_ITS ---
Subjective Subjective: Interval history: 31-year-old female she had reported that she took up to 1-1/2 g 5-6 times a day of Tylenol. Elevated Tylenol level as well as transaminitis. Admitted this morning with complaints of epigastric and right upper quadrant pain. Started on NAC. Tylenol levels have improved although her liver enzymes continue to be elevated. Her nausea vomiting is slightly better. Reports appetite is poor. Other labs notable for positive UA. Urine drug screen is positive for amphetamines and marijuana. She underwent an MRCP earlier today which ruled out any issues with the gallbladder or portal system, however made incidental note of left-sided perinephric stranding. Dedicated CT of the abdomen was negative for any hydronephrosis or obstructing lesions. Received NAC. Tylenol levels better. Appetite okay. She is wanting to go home. She does have some fatigue. Medications: Reviewed: Yes Vitals/I&O/Wt Last Vital Signs Temp 98.2 F 06/07/21 14:40 Pulse 87 06/07/21 14:40 Resp 18 06/07/21 14:40 BP 109/73 06/07/21 14:40 Pulse Ox 98 06/07/21 14:40 06/06/21 06/07/21 06/07/21 22:59 06:59 14:59 Intake Total 1000 / 1000 1344.5 / 2344.5 Balance 1000 / 1000 1344.5 / 2344.5 Weight last 48 hrs Weight 130 lb Physical Exam Const: COMMON NORMALS: no acute distress Resp: COMMON NORMALS: normal respiratory effort and No retractions Cardio: COMMON NORMALS: regular rate and regular rhythm RATE: regular rate RHYTHM: regular rhythm GI: COMMON NORMALS: Normal to inspection, nondistended, normoactive bowel sounds present and Soft to palpation PALPATION: Yes Soft to palpation : COMMON NORMALS: Yes no CVA tenderness and Yes normal external appearance BLADDER/KIDNEY EXAM: Yes no CVA tenderness Back/Pelvis: COMMON NORMALS: no CVA tenderness Psych: COMMON NORMALS: mental status grossly normal Data : 06/07/21 03:55 06/07/21 03:55 Micro: Microbiology 06/05/21 19:37 Urine Culture - Preliminary Urine,Clean Catch 06/06/21 04:30 Blood Culture - Preliminary Blood NEGATIVE TO DATE 06/06/21 04:34 Blood Culture - Preliminary Blood NEGATIVE TO DATE A&P Assessment and plan (1) Transaminitis: Status: Acute (2) Acetaminophen toxicity: Status: Acute Qualifiers: Encounter type: initial encounter Injury intent: accidental or unintentional Qualified Code(s): T39.1X1A - Poisoning by 4-Aminophenol derivatives, accidental (unintentional), initial encounter (3) Hypokalemia: Status: Acute (4) Hypomagnesemia: Status: Acute (5) Polysubstance abuse: Status: Acute Additional A&P Information #UTI -CT negative for hydronephrosis --cx's negative --continue ceftriaxone # Acetaminophen toxicity #transaminitis --s/p NAC protocol --Acetaminophen level greater than 40 continue N-acetylcysteine infusion per protocol and closely monitor LFTs and serial acetaminophen level #polysubstance use --abnormal UDS, monitor Attestations Medical Necessity Statement*: Jessica Johnson's hospital stay will require greater than 2 midnights for uti, tylenol toxicity Coding Level of Care Code 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
[2021-06-07] MEDS: lactated ringers 1,000 ML 75 ML IV (15:43)
[2021-06-08] VITALS (12 sets, daily range): BP systolic 101–115; BP diastolic 67–77; PULSE 64–80; RESP 16–20; TEMP 36.7–37.4; O2SAT 95–97
[2021-06-08] MEDS: morphine 4 mg/mL SDV 1 mL 2 MG IVP ×5 (00:36→21:46)
[2021-06-08] MEDS: lactulose oral liq 20 gm/30 mL UDC PO (05:15)
[2021-06-08] MEDS: lactated ringers 1,000 ML 75 ML IV (05:17)
--- NOTE | 2021-06-08 05:28 | PC.NURSE ---
Patient AAOx4, OOBT restroom without complications. VSS, patient had a quarter size blood tinged mucous in one of her urine outputs early in AM. C/o of pain in back between shoulder blades relieved with current pain regimen. Room clutter free and call light in reach, turning self frequently. No safety events during shift, no needs at this time. Will report and handoff patient to oncoming nurse at shift change.
[2021-06-08] MEDS: phosphorus 250 mg Tablet PO ×2 (09:16→17:55)
[2021-06-08] MEDS: magnesium oxide 400 mg tablet PO (09:16)
[2021-06-08] MEDS: pantoprazole DR 40 mg Tablet PO (09:16)
[2021-06-08 10:25] LABS: Basophils % 0.3 %; Eosinophils # 0.3 10^3/uL (0.0-0.8); Eosinophils % 2.8 %; Hematocrit 30.7 % (37.0-47.0); Hemoglobin 10.2 g/dL (11.5-15.3); Lymphocytes # 2.2 10^3/uL (0.8-4.8); Lymphocytes % 21.5 %; Mean Corpuscular HGB Conc 33.2 g/dL (30.0-36.0); Mean Corpuscular Hemoglobin 30.5 pg (28.0-34.0); Mean Corpuscular Volume 91.9 fl (81-99); Mean Platelet Volume 11.5 fL (7.4-10.4); Monocytes # 0.9 10^3/uL (0.2-0.9); Monocytes % 8.5 %; Neutrophils # 6.74 10^3/uL (1.8-7.7); Neutrophils % 66.2 %; Nucleated Red Blood Cells % 0 %; Platelet Count 163 10^3/cmm (130-400); Red Blood Count 3.34 10^6/uL (4.1-5.3); Red Cell Distribution Width 14.6 % (12.1-15.1); White Blood Count 10.2 10^3/uL (4.0-10.0)
--- NOTE | 2021-06-08 10:32 | CT_ITS ---
WS: [id number] CT ABDOMEN AND PELVIS NONCONTRAST HISTORY: Persistent hematuria and flank pain TECHNIQUE: Imaging performed through the abdomen and pelvis. Coronal and sagittal reformats are submi tted. All CT scans at [facility] use at least one of these dose optimization techniques: automated exposure control; mA and/or kV adjustment per patient size (includes targeted exams where d ose is matched to clinical indication); or iterative reconstruction. DLP: 643.05 mGy.cm COMPARISON: 06/05/2021 Lower thorax: Dependent changes at the lung bases. Heart size is normal. Liver: Liver is markedly enlarged with decreased attenuation. Very similar to the prior study. Gallbladder: Gallbladder is markedly elongated. There is mixed density within central lumen of the ga llbladder. Pancreas: There is edema around the head of the pancreas. Otherwise negative. Spleen: Spleen is enlarged at 14.5 cm in length. Adrenal glands: Normal. No mass. Right kidney: Normal size kidney with no mass or hydronephrosis. Left kidney: Mild perinephric stranding around the LEFT kidney is similar to the prior study. No obst ruction or calcifications. Aorta: Normal abdominal aorta, no aneurysm or atherosclerosis. Small amount of free fluid in the pelvis. Mild central mesenteric lymph nodes. No adenopathy. GI tract: Normal appendix. No GI tract obstruction. Abdominal wall: Fat-containing umbilical hernia. Pelvis: IUD centrally positioned within the uterus. There is a small amount of free fluid in the cul- de-sac which is more than physiologic and extends into the RIGHT adnexa. Osseous structures: Unremarkable. CT/CT kidney stone [id number] IMPRESSION: 1. Enlarged heterogeneous liver with periportal edema. Consider hepatitis as a possible etiology. 2. Elongated hydropic gallbladder with possible wall thickening. No stones wer e identified on prior studies. Gallbladder was negative on 06/05/2021. Changes i n the gallbladder may be related to acute hepatitis or hepatic injury. 3. Normal appendix. 4. Mild LEFT perinephric stranding without obstruction. Similar to the prior s tudy. 5. Mild splenomegaly. 6. Small amount of free fluid in the cul-de-sac.
[2021-06-08 10:48] LABS: Albumin Level 2.9 g/dL (3.5-5.2); Alkaline Phosphatase 63 IU/L (35-105); Anion Gap 13.5 (5-19); Aspartate Amino Transferase 451 U/L (0-32); Blood Urea Nitrogen 5 mg/dL (6-20); Calcium 8.3 mg/dL (8.5-10.5); Carbon Dioxide 27 mmol/L (22-29); Chloride 101 mmol/L (98-107); Globulin 2.4 g/dL (1.3-4.6); Glomerular Filtration Rate 188.7 mL/min (90-130); Glucose 85 mg/dL (65-115); Osmolality Calculated 283 mOsm/kg (285-295); Potassium 3.5 mmol/L (3.5-5.1); Sodium 138 mmol/L (136-145); Total Protein 5.3 g/dL (6.6-8.7)
[2021-06-08 11:01] LABS: Alanine Aminotransferase 1183 U/L (0-33)
[2021-06-08 11:34] LABS: Add Urine Microscopic? YES; Bilirubin Urine 1+ (Negative); Blood Urine 3+ (Negative); Glucose Urine UA Norm (Normal); Ketones Urine 2+ (Negative); Leukocyte Esterase Urine 1+ (Negative); Nitrate Urine Negative (Negative); Protein Urine Neg (Negative); Specific Gravity, Urine 1.005 (1.005-1.030); Urine Color Orange (Yellow); Urobilinogen Urine 4+ mg/dL (Negative); pH Urine 6.5 (5-7)
[2021-06-08 11:35] LABS: Urine Appearance SL Hazy (CLEAR)
[2021-06-08 11:42] LABS: RBC Urine 50-80 /hpf (0-2); WBC Urine 0-4 /hpf (0-5)
[2021-06-08 11:43] LABS: Add Urine Culture? No; Bacteria Urine 1+ /hpf; Mucus Urine 2+ /hpf; Squamous Epithelial Cell Urine 25-40 /hpf (0-5)
[2021-06-08 17:21] LABS: Ammonia 25 umol/L (11-51)
--- NOTE | 2021-06-08 19:28 | P.PN_ITS ---
Subjective Subjective: Interval history: 31-year-old female she had reported that she took up to 1-1/2 g 5-6 times a day of Tylenol. Elevated Tylenol level as well as transaminitis. Admitted with complaints of epigastric and right upper quadrant pain. Started on NAC. Tylenol levels have improved although her liver enzymes continue to be elevated. Her nausea vomiting is slightly better. Reports appetite is poor. Other labs notable for positive UA. Urine drug screen is positive for amph etamines and marijuana. She underwent an MRCP earlier today which ruled out any issues with the gallbladder or portal system, however made incidental note of left-sided perinephric stranding. Dedicated CT of the abdomen was negative for any hydronephrosis or obstructing lesions. The patient was also noted to have elevated ammonia levels. Received lactulose. This has normalized. She also reports right flank pain with hematuria. A repeat CTA was ordered which was negative for renal stone. Medications: Reviewed: Yes Vitals/I&O/Wt Last Vital Signs Temp 98.8 F 06/08/21 16:00 Pulse 71 06/08/21 16:00 Resp 18 06/08/21 17:53 BP 101/67 06/08/21 16:00 Pulse Ox 97 06/08/21 17:53 06/08/21 06/08/21 06/08/21 06:59 14:59 22:59 Intake Total 1170 / 2780 480 / 480 240 / 720 Output Total 640 / 800 Balance 530 / 1980 480 / 480 240 / 720 Physical Exam Const: COMMON NORMALS: patient oriented x3 and alert Resp: COMMON NORMALS: normal respiratory effort and No retractions Cardio: COMMON NORMALS: regular rate and regular rhythm RATE: regular rate RHYTHM: regular rhythm GI: COMMON NORMALS: Soft to palpation PALPATION: Yes Soft to palpation Extremity: COMMON NORMALS: normal to inspection and no pedal edema Neuro: COMMON NORMALS: patient oriented x3 SENSORIUM/ORIENTATION: Yes alert Data : 06/08/21 10:18 06/08/21 10:18 Micro: Microbiology 06/05/21 19:37 Urine Culture - Final Urine,Clean Catch Escherichia coli A&P Assessment and plan (1) Flank pain: unclear etiology ?refered pain from liver repeat CT negative for nephrolithiasis Status: Acute (2) Hematuria: elevated INR, repeat INR rx Vitamin K continue Ceftriaxone for UTI cx Ecoli, sensitive Status: Acute (3) INR (international normal ratio) abnormal: 2/2 liver disease vitamin K ordered Status: Acute (4) Pyelonephritis: E coli continue ceftriaxone UA repeated 2/2 hematuria Status: Acute (5) Acetaminophen toxicity: s/p NAC protocol Status: Acute Qualifiers: Encounter type: initial encounter Injury intent: accidental or unintentional Qualified Code(s): T39.1X1A - Poisoning by 4-Aminophenol derivatives, accidental (unintentional), initial encounter (6) Transaminitis: improved AST ALT elevated NH3 back to normal, DC lactulose check HIDA scan discussed with surgery if worsening consider transfer Status: Acute (7) Polysubstance abuse: monitor Status: Acute Attestations Medical Necessity Statement*: Jessica Johnson's hospital stay will require greater than 2 midnights for acetaminophen toxicity Coding Level of Care Code Acute Rn Palliative Care for Chg [facility] Diagnoses Flank pain R10.9 Hematuria R31.9 INR (international normal ratio) abnormal R79.1 Pyelonephritis N12 Acetaminophen toxicity T39.1X1A Encounter type: initial encounter Injury intent: accidental or unintentional Transaminitis R74.01 Polysubstance abuse F19.10
--- NOTE | 2021-06-08 19:44 | PC.NURSE ---
TEST RESULT Dr Fish called and wanted me to relay to pt that her test was negative for kidney stone
[2021-06-08 19:45] LABS: INR 1.38 (0.8-1.2)
[2021-06-08] MEDS: phytonadione (ADULT) 10 mg/mL Ampule 1 mL 5 MG PO (21:25)
[2021-06-08] MEDS: sodium chloride 0.9% 1,000 ML 100 ML IV (21:25)
[2021-06-08] MEDS: tizanidine 4 mg Tablet 2 MG PO (22:10)
[2021-06-08] MEDS: cefTRIAXone 1,000 MG in sodium chloride 0.9% (plus) 50 ML 100 MG IV (23:42)
[2021-06-09] VITALS: BP 113/73; PULSE 76; RESP 18; TEMP 36.4; O2SAT 94
[2021-06-09 03:57] VITALS: BP 102/64; PULSE 56; RESP 18; TEMP 36.8; O2SAT 94
[2021-06-09] MEDS: sodium chloride 0.9% 1,000 ML 100 ML IV (06:05)
[2021-06-09 06:25] LABS: Basophils % 0.5 %; Eosinophils # 0.3 10^3/uL (0.0-0.8); Eosinophils % 3.8 %; Hematocrit 29.4 % (37.0-47.0); Hemoglobin 9.6 g/dL (11.5-15.3); Lymphocytes # 2.4 10^3/uL (0.8-4.8); Lymphocytes % 27.9 %; Mean Corpuscular HGB Conc 32.7 g/dL (30.0-36.0); Mean Corpuscular Hemoglobin 30.2 pg (28.0-34.0); Mean Corpuscular Volume 92.5 fl (81-99); Mean Platelet Volume 11.9 fL (7.4-10.4); Monocytes # 0.9 10^3/uL (0.2-0.9); Monocytes % 10.1 %; Neutrophils # 4.82 10^3/uL (1.8-7.7); Neutrophils % 56.6 %; Nucleated Red Blood Cells % 0 %; Platelet Count 206 10^3/cmm (130-400); Red Blood Count 3.18 10^6/uL (4.1-5.3); Red Cell Distribution Width 14.4 % (12.1-15.1); White Blood Count 8.5 10^3/uL (4.0-10.0)
[2021-06-09 06:32] LABS: INR 1.31 (0.8-1.2)
[2021-06-09 06:41] LABS: Albumin Level 2.7 g/dL (3.5-5.2); Alkaline Phosphatase 58 IU/L (35-105); Anion Gap 12.6 (5-19); Aspartate Amino Transferase 233 U/L (0-32); Blood Urea Nitrogen 4 mg/dL (6-20); Calcium 7.9 mg/dL (8.5-10.5); Carbon Dioxide 27 mmol/L (22-29); Chloride 105 mmol/L (98-107); Globulin 1.9 g/dL (1.3-4.6); Glomerular Filtration Rate 188.7 mL/min (90-130); Glucose 91 mg/dL (65-115); Osmolality Calculated 288 mOsm/kg (285-295); Potassium 3.6 mmol/L (3.5-5.1); Sodium 141 mmol/L (136-145); Total Bilirubin 0.8 mg/dL (0.15-1.2); Total Protein 4.6 g/dL (6.6-8.7)
--- NOTE | 2021-06-09 06:41 | PC.NURSE ---
NM Pt to Nuc Med this am for scan. Has been NPO since midnight and no narcotics given
[2021-06-09 06:53] LABS: Alanine Aminotransferase 890 U/L (0-33)
[2021-06-09 08:00] VITALS: BP 110/75; PULSE 62; RESP 16; TEMP 36.8; O2SAT 96
[2021-06-09] MEDS: pantoprazole DR 40 mg Tablet PO (10:42)
[2021-06-09] MEDS: phosphorus 250 mg Tablet PO (10:43)
[2021-06-09 11:46] VITALS: BP 121/66; PULSE 69; RESP 17; TEMP 36.8; O2SAT 94
[2021-06-09 15:40] VITALS: BP 120/76; PULSE 60; RESP 16; TEMP 36.8; O2SAT 95
[2021-06-09 17:20] VITALS: BP 120/76; PULSE 60; RESP 16; TEMP 36.8; O2SAT 95
--- NOTE | 2021-06-09 19:29 | NM_ITS ---
WS: [id number] NUCLEAR MEDICINE HIDA SCAN with gallbladder function. HISTORY: evaluate gallbladder COMPARISON: 06/08/2021 TECHNIQUE: The patient was intravenously injected with 4.7 mCi of TC99m Mebrofenin. Immediate imaging over the right upper quadrant was followed by 5 minute image and additional images for a total of 60 minutes. Normal uptake on the initial imaging throughout the liver. The liver is markedly enlarged. At 90 rajesh cayden there is still radionuclide within the liver. Activity identified in the gallbladder at 15 minus minutes and well distended by 60 minutes. Activity in the proximal small bowel was seen by 15 minutes. Good washout of the radiotracer from the liver by 60 minutes. Gallbladder spontaneously contracted at 90 minutes. Ejection fraction at 120 minutes was 90%. Normal GB ejection fraction is 35-75%. NM/NM hepatobiliary w phar* [id number] IMPRESSION: 1. Enlarged liver with delayed excretion consistent with acute hepatitis. 2. Abnormal gallbladder. Markedly thickened gallbladder wall consistent with a cute hepatitis. 3. Gallbladder only minimally distends due to the severe wall thickening but t here is no common bile duct or cystic duct obstruction.
--- NOTE | 2021-06-09 22:04 | P.DS_ITS ---
Discharge Providers Date of Admission: 06/06/21 01:48 Date of Discharge: June 09, 2021 Attending Provider at Admission: Jess Loja MD Attending Provider at Discharge: Sven Nickerson Diagnoses at Discharge Discharge Diagnosis (1) Flank pain: Status: Acute (2) Hematuria: Status: Acute (3) INR (international normal ratio) abnormal: Status: Acute (4) Pyelonephritis: Status: Acute (5) Acetaminophen toxicity: Status: Acute Qualifiers: Encounter type: initial encounter Injury intent: accidental or unintentional Qualified Code(s): T39.1X1A - Poisoning by 4-Aminophenol derivatives, accidental (unintentional), initial encounter (6) Transaminitis: Status: Acute (7) Polysubstance abuse: Status: Acute Reason for Visit Reason for Visit: N/V, ABD PAIN Hospital Course Hospital Course 31-year-old female she had reported that she took up to 1-1/2 g 5-6 times a day of Tylenol. Elevated Tylenol level as well as transaminitis. Admitted with complaints of epigastric and right upper quadrant pain. Started on NAC. Tylenol levels have improved although her liver enzymes continue to be elevated. Her nausea vomiting is slightly better. Reports appetite is poor however improved by time of discharge. Other labs notable for positive UA. Urine drug screen is positive for amphetamines and marijuana. She underwent an MRCP earlier today which ruled out any issues with the gallbladder or portal system, however made incidental note of left-sided perinephric stranding. Dedicated CT of the abdomen was negative for any hydronephrosis or obstructing lesions.HIDA scan was also performed which noted below. No acute surgical intervention warranted. The patient was also noted to have elevated ammonia levels. Received lactulose. This has normalized. She also reports right flank pain with hematuria. A repeat CTA was ordered which was negative for renal stone. LFTs continue to trend down.. Was found to have urinary tract infection. transition to oral antibiotics at the time of discharge. Was advised to follow-up with Dr. Dempsey for repeat CMP. Consult on avoiding hepatotoxic drugs and alcohol. Laboratory workup on day of discharge showed a WBC of 8.5, hemoglobin 9.6, hematocrit 29.4 and a platelet count of 206. INR 1.31. Sodium 141, potassium 3.6, chloride 105, bicarb 27, BUN 4 and creatinine 0.4. AST had improved to 233, ALT had improved to 890. Alkaline phosphatase was within normal limits. Physical Exam Narrative: EXAM NARRATIVE: General: No acute distress, AO x3 HEENT: PERRLA, pupils bilaterally equal and reactive, pallors not present Chest: Normal vesicular breath sounds, no added sounds, equal good air entry bilaterally CVS: S1-S2 regular, no murmurs, no tachycardia, no gallops, no rubs Abdomen: Soft, nontender, no organomegaly, bowel sounds present Neuro: No focal deficits, no facial deformity, AO x3, power 5/5 in all limbs Extremities: Left-sided CVA tenderness positive Discharge Data Data Completed and Pending: Completed Studies During Hospitalization Category Date Time Status CT abdomen pelvis wo con [id number] Urge nt Cat Scan 06/05/21 18:[address] kidney stone 7 [id number] Routine Cat Scan 06/08/21 10:32 Completed XR chest 1V raul ble [id number] Routine Exams 06/06/21 00:19 Completed MR MRCP 42839 Urg ent MRI 06/05/21 21:57 Completed NM hepatobiliary w phar* [id number] Rout ine Nuc Med 06/09/21 19:29 Completed US gall bladder 7 [id number] Urgent Ultrasound 06/05/21 19:01 Completed Vitals: Last Vital Signs Temp 98.3 F 06/09/21 17:20 Pulse 60 06/09/21 17:20 Resp 16 06/09/21 17:20 BP 120/76 06/09/21 17:20 Pulse Ox 95 06/09/21 17:20 Discharge Plan Discharge Patient Disposition: Home Condition: Stable Prescriptions: New cefprozil 250 mg tablet 250 mg PO BID Qty: 20 RF: 0 Discharge Orders: Discharge Order (Routine); Ordered 06/09/21 Ordered By: Sven Nickerson Other Ambulatory Orders: Comprehensive Metabolic Panel (Routine) Timeframe: 3 Days Facility: [facility] - Location: Lab - Main Lab Ordered By: Sven Nickerson Referrals: Keven Dempsey MD [Physician] - 06/14/21 2:30 pm (Please call tomorrow for a follow up appointment F/U for LFT elevation. ) Discharge Diet: Advance as tolerated Discharge Activity: Resume usual activity Patient Instructions: Cefprozil (By mouth), Methamphetamine Abuse, Opioid Safety Activity Restrictions/Additional Instructions: NO Tylenol or any hepatotoxi meds Discharge Attestations Time Spent in Discharge Care*: greater than 30 min Specific Discharge Activities: educating patient, educating and/or supporting family/caregiver, discussing with pcp/other providers, discussing with housing case manager/social workers/dc planners, documenting/other paperwork and evaluating patient/reviewing data Status at Discharge: Cognitive status at discharge: cognitively intact , Behavioral status at discharge: cooperative , Functional status at discharge: independent ambulation Overall status at discharge: patient is progressing back to baseline Quality Metrics Clinical Quality Measures During this hospital stay, did patient experience: None Coding Level of Care Code Acute Chg FW DC note Diagnoses Flank pain R10.9 Hematuria R31.9 INR (international normal ratio) abnormal R79.1 Pyelonephritis N12 Acetaminophen toxicity T39.1X1A Encounter type: initial encounter Injury intent: accidental or unintentional Transaminitis R74.01 Polysubstance abuse F19.10
--- NOTE | 2021-06-14 08:35 | PC.SOCIAL ---
several attempts made to speak with patient for discharge follow up. message left. appointment made with Dr. Dempsey for follow up. Unable to reach patient to let her know.
== END 2021-06-09 17:20 | disposition home or self-care (01) | DRG 918 ==
LOC: ER 23:36 → ER IP 06-06 08:18 → MEDSURG 06-07 14:09
PROVIDERS: Family Medicine; Hospitalist; Internal Medicine; Admitting Provider Student in an Organized Health Care Education/Training Program; Emergency Provider Emergency Medicine; Visit Provider Hospitalist
DX: T39.1X1A Poisoning by 4-Aminophenol derivatives, accidental (unintentional), initial encounter (principal); N39.0 Urinary tract infection, site not specified; N10 Acute pyelonephritis; Z87.440 Personal history of urinary (tract) infections; Z97.5 Presence of (intrauterine) contraceptive device; E87.6 Hypokalemia; F15.90 Other stimulant use, unspecified, uncomplicated; F12.90 Cannabis use, unspecified, uncomplicated; E83.42 Hypomagnesemia; R31.9 Hematuria, unspecified; B96.20 Unspecified Escherichia coli [E. coli] as the cause of diseases classified elsewhere
CPT/HCPCS: 36415; 71045; 74176; 74181; 76705; 78227; 80048; 80053; 80074; 80076; 80306; 80307; 81001; 82140; 82550; 83605; 83690; 83735; 84100; 84145; 84703; 85025; 85610; 86140; 87040; 87077; 87086; 87186; 87635; 87806; 96365; 96366; 96367; 96375; 96376; 99285; A9537; J0132; J0696; J2270; J2405; J3430; J3475; J3480; J7030

== ENCOUNTER → 2021-06-16 16:10 | Outpatient (BNVA) | payer MEDICAID, SELFPAY | PROVIDERS: Visit Provider Internal Medicine | DX: B17.9 Acute viral hepatitis, unspecified (principal); T39.1X1A Poisoning by 4-Aminophenol derivatives, accidental (unintentional), initial encounter; F19.10 Other psychoactive substance abuse, uncomplicated | CPT/HCPCS: 82977; 83615; 84450; 84460 ==